=== PATIENT | female | born 1960 | race African-American/Black ===

== ENCOUNTER 2017-04-01 17:15 | Emergency (ER) | payer BC, OTHER ==
[2017-04-01 17:25] VITALS: BP 125/75; PULSE 103; TEMP 97.2; BMI 35.5
--- NOTE | 2017-04-01 21:31 | PDOC ---
History of Present Illness - General Chief Complaint: Shortness of Breath Stated Complaint: PALPITATIONS Time Seen by Provider: 04/01/17 19:00 History Source: Patient Exam Limitations: No Limitations - History of Present Illness Initial Comments: 04/01/17 21:14 56yo Female patient w/ PmHx: IDDM, HLD presents to ED c/o SOB. Patient states she went to see PCP today for routine check up, she states she was running up a hill prior to entering office. She reported feeling SOB, EKG done in office and was found to be abnormal. Patient was to be set via EMS but refused. Patient walked over to ED for evaluation. She currently denies SOB, CP, Abd pain, back pain, n/v/d, fever, cough, congestion, or any other complaints at this time. Timing/Duration: reports: just prior to arrival Severity: reports: mild Episode Description: See HPI Possible Cause: Yes: no prior episodes Modifying Factors: improves with: oxygen, rest. worse with: activity, albuterol inhaler, albuterol nebulizer, antibiotics, coughing, lying down, other Associated Symptoms: reports: shortness of breath. denies: denies symptoms, chest pain/soreness, cough, dizziness, earache, facial pain, fever/chills, headache, lightheadedness, muscle aches, nasal congestion, nasal drainage, sinus infection, sore throat, wheezing, other Past History - Travel Traveled outside of the country in the last 30 days: No Close contact w/someone who was outside of country & ill: No - Past Medical History Allergies/Adverse Reactions: Allergies Allergy/AdvReac Type Severity Reaction Status Date / Time No Known Allergies Allergy Verified 04/01/17 17:21 Home Medications: Ambulatory Orders Metformin HCl [Glucophage] 1,000 mg PO BID 12/07/12 Simvastatin [Zocor -] 40 mg PO DAILY 12/07/12 Insulin (LOG) Aspart [NovoLOG] 40 unit SQ DAILY 05/18/13 Diabetes: Yes Hypercholesterolemia: Yes Suicide Attempt (Hx): No - Surgical History Abdominal Surgery: Yes - Immunization History Immunization Up to Date: Yes - Psycho/Social/Smoking Cessation Hx Anxiety: No Suicidal Ideation: No Smoking Status: No Smoking History: Never smoked Have you smoked in the past 12 months: No Number of Cigarettes Smoked Daily: 0 Information on smoking cessation initiated: No Hx Alcohol Use: No Drug/Substance Use Hx: No Substance Use Type: None Respiratory Specific PMHX - Complaint Specific PMHX Angina: No Bronchitis: No Pneumonia: No Pulmonary Embolus: No TB (Tuberculosis): No Review of Systems - Review of Systems Able to Perform ROS?: Yes Is the patient limited Tajik proficient: No Constitutional: No: Chills, Fever Respiratory: Yes: Shortness of Breath. No: Cough, Wheezing Cardiac (ROS): No: Chest Pain, Lightheadedness, Palpitations, Syncope, Chest Tightness : No: Burning, Discharge, Flank Pain, Hematuria Musculoskeletal: No: Back Pain Integumentary: No: Bruising, Erythema, Rash Neurological: No: Headache All Other Systems: Reviewed and Negative *Physical Exam - Vital Signs Last Vital Signs Temp Pulse Resp BP Pulse Ox 97.2 F L 103 H 20 125/75 100 04/01/17 17:21 04/01/17 17:21 04/01/17 17:21 04/01/17 17:21 04/01/17 17:21 - Physical Exam General Appearance: Yes: Nourished, Appropriately Dressed. No: Apparent Distress, Mild Distress, Moderate Distress, Severe Distress HEENT: positive: EOMI, BENJAMIN, Normal ENT Inspection, Normal Voice, Symmetrical, TMs Normal, Pharynx Normal. negative: Pharyngeal Erythema, Tonsillar Exudate, Tonsillar Erythema, Nasal Congestion, Rhinorrhea, TM Bulging, TM Dull, TM Erythema Neck: positive: Trachea midline, Supple. negative: Lymphadenopathy (R), Lymphadenopathy (L), Tender lateral, Tender midline Respiratory/Chest: positive: Lungs Clear, Normal Breath Sounds. negative: Chest Tender, Respiratory Distress, Accessory Muscle Use, Labored Respiration, Rapid RR Cardiovascular: positive: Regular Rhythm, Regular Rate Musculoskeletal: positive: Normal Inspection. negative: CVA Tenderness, Decreased Range of Motion, Vertebral Tenderness Extremity: positive: Normal Capillary Refill, Normal Inspection, Normal Range of Motion. negative: Pedal Edema, Swelling, Calf Tenderness, Erythema, Inflammation Integumentary: positive: Normal Color, Dry, Warm Neurologic: positive: trauma counsellor II-XII NML intact, Fully Oriented, Alert, Normal Mood/ Affect, Normal Response, Motor Strength 5/5 ED Treatment Course - LABORATORY CBC & Chemistry Diagram: 04/01/17 23:11 04/01/17 20:56 - RADIOLOGY Radiology Studies Ordered: Category Date Time Status CHEST PA & LAT [RAD] Stat Radiology 04/01/17 19:03 Ordered HAND- RIGHT [RAD] Stat Radiology 04/01/17 19:13 Ordered *DC/Admit/Observation/Transfer Diagnosis at time of Disposition: Shortness of breath - Discharge Dispostion Disposition: HOME Condition at time of disposition: Improved Admit: No - Referrals Referrals: Arlin Prakash NP [Primary Care Provider] - Conrad Braun MD [Staff Physician] - - Patient Instructions Printed Discharge Instructions: DI for Shortness of Breath Additional Instructions: FOLLOW UP WITH LYNDON PRAKASH, THIS WEEK FOR FURTHER EVALUATION. YOU SHOULD SCHEDULE APPOINTMENT TO SEE CARDIOLOGY. CALL DR. BRAUN FOR APPOINTMENT. RETURN IF SYMPTOMS WORSEN OR ANY CONCERNS FOR FURTHER EVALUATION. Print Language: SCOTTISH
[2017-04-01 22:02] LABS: ALBUMIN 3.6 g/dl (3.4-5.0); ANION GAP 9 (8-16); BILIRUBIN,TOTAL 0.2 mg/dL (0.2-1.0); CALCIUM 9.1 mg/dL (8.5-10.1); CO2 28 mmol/L (21-32); CPK 75 IU/L (26-192); CREATININE 0.7 mg/dL (0.55-1.02); GLUCOSE,RANDOM 284 mg/dL (74-106); SGOT/AST 8 U/L (15-37); SGPT/ALT 13 U/L (12-78); TOT PROT 6.9 g/dl (6.4-8.2)
[2017-04-01 22:05] LABS: ALK PHOS 103 U/L (45-117); TROPONIN I < 0.02 ng/ml (0.00-0.05)
[2017-04-01 23:07] LABS: INR 1.02 (0.82-1.09); PROTHROMBIN TIME (PATIENT) 11.2 SEC (9.98-11.88)
[2017-04-01 23:12] LABS: URINE APPEARANCE SLCLOUDY; URINE BILIRUBIN NEGATIVE (NEGATIVE); URINE BLOOD NEGATIVE (NEGATIVE); URINE COLOR LTYELLOW; URINE GLUCOSE (UA) 3+ (NEGATIVE); URINE KETONE NEGATIVE (NEGATIVE); URINE LEUK ESTERASE TRACE (NEGATIVE); URINE NITRITE POSITIVE (NEGATIVE); URINE PROTEIN NEGATIVE (NEGATIVE); URINE UROBILINOGEN NEGATIVE mg/dL (0.2-1.0)
[2017-04-01 23:39] LABS: BASOPHIL 0.6 % (0-2.0); EOSINOPHIL 1.9 % (0-4.5); MCHC 31.5 g/dl (32.0-36.0); MEAN CELL VOLUME 79.3 fl (80-96); MEAN PLT VOLUME 7.4 fl (7.5-11.1); NEUTROPHILS 51.1 % (42.8-82.8); PLATELET COUNT 283 K/MM3 (134-434); RDW 13.1 % (11.6-15.6); WHITE BLOOD COUNT 7.7 K/mm3 (4.0-10.0)
[2017-04-01 23:50] LABS: URINE RBC 3 /hpf (0-3); URINE WBC 32 /hpf (3-5)
[2017-04-01 23:51] LABS: URINE BACTERIA MODERATE /hpf (NONE SEEN)
--- NOTE | 2017-04-02 11:29 | EKG ---
Test Reason : Blood Pressure : / mmHG Vent. Rate : 103 BPM Atrial Rate : 103 BPM P-R Int : 144 ms QRS Dur : 090 ms QT Int : 342 ms P-R-T Axes : 051 020 -17 degrees QTc Int : 448 ms SINUS TACHYCARDIA WITH OCCASIONAL PREMATURE VENTRICULAR COMPLEXES POSSIBLE INFERIOR INFARCT , AGE UNDETERMINED ABNORMAL ECG WHEN COMPARED WITH ECG OF 08-DEC-2012 10:29, PREMATURE VENTRICULAR COMPLEXES ARE NOW PRESENT Confirmed by OLGA BARBER, KIANA ([id number]) on 04/02/2017 11:29:35 AM Referred By: Confirmed By:KIANA ESPINOZA MD
== END 2017-04-02 01:00 | disposition home or self-care (01) ==
LOC: JER 17:15
DX: R06.02 Shortness of breath (principal); E78.00 Pure hypercholesterolemia, unspecified; E11.9 Type 2 diabetes mellitus without complications; Z79.4 Long term (current) use of insulin; Z79.84 Long term (current) use of oral hypoglycemic drugs
CPT/HCPCS: 36415; 71020-TC; 73130-TC-RT; 80053; 81003; 81015; 84443; 84484; 85025; 85379; 85610; 93005; 93010; 99283-25

== ENCOUNTER 2018-07-10 18:28 | Emergency (ER) | payer OTHER ==
--- NOTE | 2018-07-10 18:50 | PDOC ---
Rapid Medical Evaluation Time Seen by Provider: 07/10/18 18:40 Medical Evaluation: Allergies Allergy/AdvReac Type Severity Reaction Status Date / Time No Known Allergies Allergy Verified 07/10/18 18:40 07/10/18 18:40 I have performed a brief in-person evaluation of this patient. The patient presents with a chief complaint of:H/o HLD, DM, here w/ R wrist pain s/p injury 2 months ago Pertinent physical exam findings:unremarkable I have ordered the following:nothing The patient will proceed to the ED for further evaluation. Discharge Disposition - Diagnosis Wrist injury Qualifiers: Encounter type: initial encounter Laterality: unspecified laterality Qualified Code(s): S69.90XA - Unspecified injury of unspecified wrist, hand and finger(s) , initial encounter - Referrals Referrals: Arlin Prakash NP [Primary Care Provider] - - Patient Instructions - Post Discharge Activity
[2018-07-10 18:51] VITALS: BP 155/69; PULSE 91; TEMP 98.8; BMI 35.2
--- NOTE | 2018-07-10 19:49 | PDOC ---
History of Present Illness - General Chief Complaint: Injury Stated Complaint: RIGHT WRIST INJURY Time Seen by Provider: 07/10/18 18:40 History Source: Patient Exam Limitations: No Limitations - History of Present Illness Initial Comments: 07/10/18 19:43 57 yr female states she injured her right wrist on a garden shovel 2 months ago. pt has continued pain to the right wrist. Severity: reports: moderate Past History - Past Medical History Allergies/Adverse Reactions: Allergies Allergy/AdvReac Type Severity Reaction Status Date / Time No Known Allergies Allergy Verified 07/10/18 18:40 Home Medications: Ambulatory Orders Simvastatin [Zocor -] 40 mg PO DAILY 12/07/12 metFORMIN HCL [Glucophage] 1,000 mg PO BID 12/07/12 Ibuprofen [Advil -] 400 mg PO TID PRN 07/10/18 Insulin Glargine,Hum.rec.anlog [Lantus Solostar PEN (NF)] 50 units SQ HS Insulin Lispro [Humalog] 10 unit SQ AC 07/10/18 Diabetes: Yes Hypercholesterolemia: Yes - Surgical History Abdominal Surgery: Yes - Immunization History Immunization Up to Date: Yes - Suicide/Smoking/Psychosocial Hx Smoking Status: No Smoking History: Never smoked Have you smoked in the past 12 months: No Number of Cigarettes Smoked Daily: 0 Hx Alcohol Use: No Drug/Substance Use Hx: No Substance Use Type: None Review of Systems - Review of Systems Able to Perform ROS?: Yes Is the patient limited Albanian proficient: No Musculoskeletal: Yes: Symptoms Reported *Physical Exam - Vital Signs Last Vital Signs Temp Pulse Resp BP Pulse Ox 98.8 F 91 H 16 155/69 07/10/18 18:42 07/10/18 18:42 07/10/18 18:42 07/10/18 18:42 - Physical Exam General Appearance: Yes: Nourished, Appropriately Dressed HEENT: positive: EOMI, BENJAMIN Musculoskeletal: positive: Normal Inspection Extremity: positive: Normal Capillary Refill, Tender (distal wrist ttp no swelling nv intact. tender to the carpal tunnel on palpation) Integumentary: positive: Normal Color, Dry, Warm Neurologic: positive: Fully Oriented, Alert, Normal Mood/Affect, Normal Response , Motor Strength 5/5 Moderate Sedation - Procedure Monitoring Vital Signs: Procedure Monitoring Vital Signs Temperature 98.8 F 07/10/18 18:42 Pulse Rate 91 H 07/10/18 18:42 Respiratory Rate 16 07/10/18 18:42 Blood Pressure 155/69 07/10/18 18:42 O2 Sat by Pulse Oximetry (%) ED Treatment Course - RADIOLOGY Radiology Studies Ordered: Category Date Time Status WRIST W/HAND-RIGHT* [RAD] Stat Radiology 07/10/18 19:01 Taken Medical Decision Making - Medical Decision Making 07/10/18 19:45 right wrist injury 2 months ago pt states pain continues and is worse at night 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 neg numbness or tingling xray is negative for fracture will refer to ortho *DC/Admit/Observation/Transfer Diagnosis at time of Disposition: Wrist injury Qualifiers: Encounter type: initial encounter Laterality: unspecified laterality Qualified Code(s): S69.90XA - Unspecified injury of unspecified wrist, hand and finger(s) , initial encounter - Discharge Dispostion Disposition: HOME Condition at time of disposition: Good - Referrals Referrals: Arlin Prakash NP [Primary Care Provider] - Benny Funes MD [Staff Physician] - - Patient Instructions Additional Instructions: use a wrist splint especially at night apply warm compresses to the wrist every 3hrs for 20 minutes take ibuprofen or naprosyn (aleve) for pain follow with the orthopedist next week - Post Discharge Activity
== END 2018-07-10 20:08 | disposition home or self-care (01) ==
LOC: JERFT 18:28
DX: S69.81XA Other specified injuries of right wrist, hand and finger(s), initial encounter (principal); X58.XXXA Exposure to other specified factors, initial encounter; Y93.89 Activity, other specified; Y92.89 Other specified places as the place of occurrence of the external cause; Y99.8 Other external cause status; E78.00 Pure hypercholesterolemia, unspecified; E11.9 Type 2 diabetes mellitus without complications; Z79.4 Long term (current) use of insulin; Z79.84 Long term (current) use of oral hypoglycemic drugs
CPT/HCPCS: 73110-TC-RT-FY; 73130-TC-RT-FY; 99281-25

== ENCOUNTER 2018-09-23 10:40 | Emergency (ER) | payer OTHER ==
[2018-09-23 11:00] VITALS: BP 155/70; PULSE 80; TEMP 98.1; BMI 36.9
[2018-09-23] MEDS ORDERED: KETOROLAC TROMETHAMINE 60 MG/2 ML VIAL IM ONE (12:56)
[2018-09-23] MEDS ORDERED: KETOROLAC TROMETHAMINE 60 MG/2 ML VIAL ONE (13:02)
--- NOTE | 2018-09-23 13:02 | PDOC ---
History of Present Illness - General Chief Complaint: Pain, Acute Stated Complaint: FALL/ LT ARM PAIN Time Seen by Provider: 09/23/18 12:42 History Source: Patient Exam Limitations: Clinical Condition - History of Present Illness Initial Comments: 09/23/18 12:57 Patient with no significant past medical history present with complaint of left forearm and wrist pain status post slip on ice and fall yesterday on outstretched hand. Patient reports pain to touch to back of left wrist. Patient denies hitting head or loss of consciousness Timing/Duration: 24 hours Past History - Past Medical History Allergies/Adverse Reactions: Allergies Allergy/AdvReac Type Severity Reaction Status Date / Time No Known Allergies Allergy Verified 07/10/18 18:40 Home Medications: Ambulatory Orders Simvastatin [Zocor -] 40 mg PO DAILY 12/07/12 metFORMIN HCL [Glucophage] 1,000 mg PO BID 12/07/12 Ibuprofen [Advil -] 400 mg PO TID PRN 07/10/18 Insulin Glargine,Hum.rec.anlog [Lantus Solostar PEN (NF)] 50 units SQ HS Insulin Lispro [Humalog] 10 unit SQ AC 07/10/18 Ibuprofen 800 mg PO Q8H PRN #20 tablet 09/23/18 COPD: No Diabetes: Yes Hypercholesterolemia: Yes - Surgical History Abdominal Surgery: Yes - Immunization History Immunization Up to Date: Yes - Suicide/Smoking/Psychosocial Hx Smoking Status: No Smoking History: Never smoked Have you smoked in the past 12 months: No Number of Cigarettes Smoked Daily: 0 Information on smoking cessation initiated: No Hx Alcohol Use: No Drug/Substance Use Hx: No Substance Use Type: None Review of Systems - Review of Systems Able to Perform ROS?: Yes Is the patient limited Azeri proficient: No Constitutional: No: Weakness HEENTM: No: Symptoms Reported Respiratory: No: Symptoms reported Cardiac (ROS): No: Symptoms Reported Musculoskeletal: Yes: See HPI, Joint Pain (left elbow and wrist), Joint Swelling (left wrist), Muscle Pain (left wrist) Neurological: No: Numbness, Paresthesia, Tingling All Other Systems: Reviewed and Negative *Physical Exam - Vital Signs Last Vital Signs Temp Pulse Resp BP Pulse Ox 98.1 F 80 17 155/70 97 09/23/18 10:58 09/23/18 10:58 09/23/18 10:58 09/23/18 10:58 09/23/18 10:58 - Physical Exam Comments: 09/23/18 13:01 GENERAL: Well developed, well nourished. Awake and alert. No acute distress. CARDIOVASCULAR: Regular rate and rhythm. No murmurs, rubs, or gallops. PULMONARY: No evidence of respiratory distress. Lungs clear to auscultation bilaterally. No wheezing, rales or rhonchi. ABDOMINAL: Soft. Non-tender. Non-distended. No rebound or guarding. No organomegaly. Normoactive bowel sounds MUSCULOSKELETAL : Moderate tenderness to dorsal aspect of left wrist with mild swelling to left wrist. Mild tenderness to the olecranon left elbow. No bony deformities SKIN: Warm and dry. Normal capillary refill. NEUROLOGICAL: Alert, awake, appropriate. No motor deficits in the lower extremities. Gait is normal without ataxia. PSYCHIATRIC: Cooperative. Good eye contact. Appropriate mood and affect. General Appearance: Yes: Nourished, Appropriately Dressed, Mild Distress Moderate Sedation - Procedure Monitoring Vital Signs: Procedure Monitoring Vital Signs Temperature 98.1 F 09/23/18 10:58 Pulse Rate 80 09/23/18 10:58 Respiratory Rate 17 09/23/18 10:58 Blood Pressure 155/70 09/23/18 10:58 O2 Sat by Pulse Oximetry (%) 97 09/23/18 10:58 ED Treatment Course - RADIOLOGY Radiology Studies Ordered: Category Date Time Status FOREARM- LEFT [RAD] Stat Radiology 09/23/18 12:54 Ordered WRIST W/HAND-LEFT* [RAD] Stat Radiology 09/23/18 12:54 Ordered Medical Decision Making - Medical Decision Making 09/23/18 13:02 Patient with no significant past medical history present with complaint of left forearm and wrist pain status post slip on ice and fall yesterday on outstretched hand. Patient reports pain to touch to back of left wrist. Patient denies hitting head or loss of consciousness. Exam significant for moderate tenderness to dorsal aspect of left wrist with mild swelling to left wrist and mild tenderness over olecranon of left elbow. X-ray of left forearm, wrist and hand ordered to rule out fracture. Toradol 60 mg IM ordered for pain. Treat based on imaging results 09/23/18 13:30 X-ray of left wrist, forearm and hand shows no acute fracture or dislocation. Symptoms likely wrist sprain caused by fall. Patient stable for discharge on ibuprofen as needed for pain, wrist brace with orthopedist follow-up as needed. *DC/Admit/Observation/Transfer Diagnosis at time of Disposition: Left forearm pain Wrist injury Qualifiers: Encounter type: initial encounter Laterality: left Qualified Code(s): S69.92XA - Unspecified injury of left wrist, hand and finger(s), initial encounter - Discharge Dispostion Disposition: HOME Condition at time of disposition: Stable Decision to Admit order: No - Prescriptions Prescriptions: Ibuprofen 800 mg PO Q8H PRN #20 tablet PRN Reason: pain - Referrals Referrals: Antoine Castro DO [Staff Physician] - - Patient Instructions Printed Discharge Instructions: DI for Wrist Sprain Additional Instructions: Your x-ray shows no fracture. Take prescribed medication as needed for pain. Rest left elbow and wrist. Apply heat compresses to left wrist and forearm 2-3 times a day for 5-10 minutes as needed for pain. Follow-up referred to orthopedics if symptoms persist for more than 5 days. - Post Discharge Activity
== END 2018-09-23 13:36 | disposition home or self-care (01) ==
LOC: JERFT 10:40
PROC: 3E0233Z Introduction of Anti-inflammatory into Muscle, Percutaneous Approach (ICD-10-PCS; principal; 2018-09-23)
DX: S69.92XA Unspecified injury of left wrist, hand and finger(s), initial encounter (principal); W00.0XXA Fall on same level due to ice and snow, initial encounter; Y93.89 Activity, other specified; Y92.89 Other specified places as the place of occurrence of the external cause
CPT/HCPCS: 73090-TC-LT-FY; 73110-TC-LR-FY; 73130-TC-LT-FY; 99281-25